=== PATIENT | female | born 1940 | race Caucasian/White ===

== ENCOUNTER 2024-08-09 10:38 | Outpatient (CLI) | payer OTHER, MEDICAID ==
[2024-08-09 12:27] LABS: INR-International Normal Ratio 0.9; Prothrombin Time 12.6 sec (12.0-14.7)
[2024-08-09 12:28] LABS: Anion Gap 18 mmol/L (10-20); BUN (Urea Nitrogen) 12 mg/dL (9.8-20.1); Calc. Creatinine Clearance 0 mL/min (70-130); Carbon Dioxide 28 mmol/L (23-31); Chloride 99 mmol/L (98-107); Estimated GFR 79; Glucose 110 mg/dL (83-110); Potassium 4.5 mmol/L (3.5-5.1); Sodium 140 mmol/L (136-145)
[2024-08-09 12:55] LABS: #Basophils 0.03 10x3/uL (0.0-0.2); %Basophils 0.5 % (0.0-1.0); %Eosinophils 4.6 % (0.0-10.0); %Monocytes 5.8 % (0.0-10.0); %Neutrophils 52.9 % (42.0-75.0); Hematocrit 40.8 % (36.0-47.0); Hemoglobin 13.3 g/dL (12.0-16.0); Mean Corpuscular HGB CONC 32.6 g/dL (32.0-36.0); Mean Corpuscular Hemoglobin 30.9 pg (27.0-31.0); Mean Corpuscular Volume 94.9 fL (78.0-98.0); Mean Platelet Volume 12.2 fL (7.4-10.4); Platelet Count 191 10x3/uL (130-400); RBC Distribution Width 12.2 % (11.5-14.5)
== END 2024-08-09 10:39 | disposition home or self-care (01) ==
LOC: LABBT 10:38
PROVIDERS: ATTEND Student in an Organized Health Care Education/Training Program
DX: Z01.818 Encounter for other preprocedural examination (principal); M17.11 Unilateral primary osteoarthritis, right knee
CPT/HCPCS: 71046; 80048; 85025; 85610; 87081

== ENCOUNTER 2024-08-13 15:09 | Outpatient (CLI) | payer OTHER, MEDICAID | END 2024-08-13 15:10 | disposition home or self-care (01) | LOC: BICCT 15:09 | PROVIDERS: ATTEND Student in an Organized Health Care Education/Training Program | DX: M17.11 Unilateral primary osteoarthritis, right knee (principal); M25.461 Effusion, right knee; M25.761 Osteophyte, right knee ==

== ENCOUNTER 2024-08-16 05:29 | Observation (INO) | payer OTHER, MEDICAID ==
[2024-08-16] MEDS ORDERED: Midazolam HCl 2 mg/2 ml Vial ONE (06:19)
[2024-08-16] MEDS ORDERED: fentaNYL 50 mcg/mL 1 mL Vial ONE (06:19)
[2024-08-16] MEDS ORDERED: Propofol 1,000 MG/100 ML VIAL IV ONE (06:19)
[2024-08-16] MEDS ORDERED: CEFAZOLIN 2 GM VIAL ONE (06:28)
[2024-08-16] MEDS ORDERED: Sodium Chloride 0.9% 100 ML ONE (06:28)
[2024-08-16] MEDS ORDERED: Tranexamic Acid 1,000 MG/10 ML VIAL ONE (06:28)
[2024-08-16] MEDS ORDERED: Vancomycin (BATCH) 1.5 GM/300 ML BAG ONE (06:28)
[2024-08-16] MEDS ORDERED: EPINEPHrine 1 MG/ML VIAL ONE (06:49)
[2024-08-16] MEDS ORDERED: Bupivacaine 0.25% HCL 30 ML VIAL ONE (06:50)
[2024-08-16] MEDS ORDERED: Lidocaine 1% (PF) 30 ML VIAL ONE (07:17)
[2024-08-16] MEDS ORDERED: Bupivacaine PF 0.5% 30 ML VIAL ONE (07:17)
[2024-08-16] MEDS ORDERED: traMADol HCl 50 MG TAB PO PRN ×3 (08:00→10:43)
[2024-08-16] MEDS ORDERED: HYDROcodone/Acetaminophen 10/325 mg Tablet PO PRN ×2 (08:00)
[2024-08-16] MEDS ORDERED: Zolpidem Tartrate 5 MG TAB PO PRN ×2 (08:00→10:43)
[2024-08-16] MEDS ORDERED: Ondansetron PF 4 MG/2 ML Vial IVP PRN ×2 (08:00→10:43)
[2024-08-16] MEDS ORDERED: fentaNYL 50 mcg/mL 1 mL Vial SLOW IVP PRN (08:00)
[2024-08-16] MEDS ORDERED: Ropivacaine 0.2% 550 ML 550 ML NERVE BLCK SCH (08:00)
[2024-08-16] MEDS ORDERED: Promethazine HCl 25 MG/ML VIAL IM PRN ×2 (08:00→10:43)
[2024-08-16] MEDS ORDERED: PHENYLEPHRINE-NS 100 MCG/ML 10 ML SYRINGE ONE ×2 (09:06→09:48)
[2024-08-16] MEDS ORDERED: Vancomycin 1 GM VIAL ONE (09:23)
[2024-08-16] MEDS ORDERED: Bupivacaine HCl 0.5%/Epinephrine 1:200,000/PF 30 ml Vial ONE (10:15)
[2024-08-16] MEDS ORDERED: Ketorolac Tromethamine 30 MG (1 mL) VIAL ONE (10:15)
[2024-08-16] MEDS ORDERED: Methocarbamol 500 MG TAB PO PRN (10:43)
[2024-08-16] MEDS ORDERED: oxyCODONE 5 MG TAB PO PRN (10:43)
[2024-08-16] MEDS ORDERED: diphenhydrAMINE 25 MG CAP PO PRN (10:43)
[2024-08-16] MEDS ORDERED: Ondansetron PF 4 MG/2 ML Vial ONE (10:48)
[2024-08-16] MEDS ORDERED: HYDROmorphone 0.5 MG/0.5 ML SYRINGE ONE (10:48)
[2024-08-16] MEDS: Acetaminophen 500 MG TAB PO SCH (18:00)
[2024-08-16] MEDS: Sodium Chloride 0.9% 1,000 ML IV SCH (18:00)
[2024-08-16] MEDS: Ketorolac Tromethamine 30 MG (1 mL) VIAL IVP SCH (18:01)
[2024-08-16] MEDS: CEFAZOLIN 2 GM in Sodium Chloride 0.9% 100 ML IVPB SCH (18:02)
[2024-08-16 18:56] VITALS: BMI 39.6
[2024-08-17 04:08] LABS: Hematocrit 27.8 % (36.0-47.0); Hemoglobin 10.3 g/dL (12.0-16.0); Mean Corpuscular HGB CONC 37.1 g/dL (32.0-36.0); Mean Corpuscular Hemoglobin 38.9 pg (27.0-31.0); Mean Corpuscular Volume 104.9 fL (78.0-98.0); Mean Platelet Volume 12.7 fL (7.4-10.4); Platelet Count 154 10x3/uL (130-400); RBC Distribution Width 15.5 % (11.5-14.5); Red Blood Cell (RBC) Count 2.65 mill/uL (4.20-5.40)
[2024-08-17 04:24] LABS: Anion Gap 13 mmol/L (10-20); BUN (Urea Nitrogen) 26 mg/dL (9.8-20.1); Calc. Creatinine Clearance 76 mL/min (70-130); Calcium 8.2 mg/dL (7.8-10.44); Carbon Dioxide 26 mmol/L (23-31); Chloride 105 mmol/L (98-107); Estimated GFR 67; Glucose 108 mg/dL (83-110); Potassium 3.5 mmol/L (3.5-5.1); Sodium 140 mmol/L (136-145)
[2024-08-17] MEDS: Ferrous Gluconate 324 MG TAB PO SCH (09:42)
[2024-08-17] MEDS: Multivitamin W/ Minerals 1 TAB PO SCH (09:42)
[2024-08-17] MEDS: Senokot S 8.6-50 MG TAB PO SCH (09:42)
[2024-08-17] MEDS: oxyCODONE 5 MG TAB PO PRN (09:44)
[2024-08-17 11:13] VITALS: BP 138/91; TEMP 98.6
[2024-08-17] MEDS: Acetaminophen 500 MG TAB PO SCH (15:27)
== END 2024-08-17 17:44 | disposition home or self-care (01) ==
LOC: SDC 05:29 → SURG B 12:03
PROVIDERS: ADMIT Student in an Organized Health Care Education/Training Program; ATTEND Student in an Organized Health Care Education/Training Program
PROC: 0SRC0JZ Replacement of Right Knee Joint with Synthetic Substitute, Open Approach (ICD-10-PCS; principal; 2024-08-16)
PROC: 3E0T3BZ Introduction of Anesthetic Agent into Peripheral Nerves and Plexi, Percutaneous Approach (ICD-10-PCS; 2024-08-16)
PROC: 0MQN0ZZ Repair Right Knee Bursa and Ligament, Open Approach (ICD-10-PCS; 2024-08-16)
DX: M17.11 Unilateral primary osteoarthritis, right knee (principal); I10 Essential (primary) hypertension; E78.5 Hyperlipidemia, unspecified; Z79.890 Hormone replacement therapy; Z79.899 Other long term (current) drug therapy
CPT/HCPCS: 0055T; 27405; 27447; 64448; 36415; 80048; 85027; A4306; C1713; C1776; C1889; J0171; J0665; J1885; J2250; J2405; J2704; J2795; J3010; J3370; J7030